=== PATIENT | female | born 1995 | race American Indian/Alaskan Native ===

== ENCOUNTER 2019-03-12 11:40 | Emergency (ER) | payer OTHER, MEDICAID ==
[2019-03-12 12:59] VITALS: BP 116/65
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
== END 2019-03-12 13:22 | disposition home or self-care (01) ==
LOC: ED 11:40
DX: M79.651 Pain in right thigh (principal); J45.909 Unspecified asthma, uncomplicated; Z98.51 Tubal ligation status; Z91.09 Other allergy status, other than to drugs and biological substances; V89.2XXA Person injured in unspecified motor-vehicle accident, traffic, initial encounter; Y93.89 Activity, other specified; Y92.89 Other specified places as the place of occurrence of the external cause; Y99.8 Other external cause status
CPT/HCPCS: 99282